=== PATIENT | female | born 1985 | race Caucasian/White ===

== ENCOUNTER 2020-11-17 10:39 | Emergency (ER) | payer BC ==
[~2020-11-17] VITALS: Ht 167.6 cm; Wt 56.7 kg
[2020-11-17 10:44] VITALS: BP 134/85
--- NOTE | 2020-11-17 11:00 | Emergency Room Report ---
History of Present Illness General Chief Complaint: Lower Extremity Injury Source: Patient Present Illness HPI Disclaimer: Please note that this report is being documented using [employer] technology. This can lead to erroneous entry secondary to incorrect interpretation by the dictating instrument. HPI: 35-year-old female presents for evaluation after a puncture wound to the right foot. Yesterday she was splitting up some wood and accidentally stepped on a nail that was lodged in a piece of wood. Went through her sneakers and penetrated the bottom of the foot. Did not go through to the other side. She applied hydrogen peroxide and Betadine. Denies limitation in range of motion. Denies swelling, bleeding, purulent drainage or surrounding redness. Came in for tetanus booster. No other injury reported. Painful to ambulate though still able to. PMH: Asthma PSH: Breast augmentation Allergies: Denied Social Hx: Current smoker, quitting Allergies: Coded Allergies: No Known Allergies (Unverified , 11/17/20) COVID-19 Screening Contact w/high risk pt: No Experienced COVID-19 symptoms?: No COVID-19 Testing performed CLAIMS ADJUSTOR: Yes COVID-19 Screening: Negative COVID-19 COVID-19 Testing Source: car Patient History Now: No Nursing Documentation-PMH Past Medical History: No History, Except For Hx Gastrointestinal Problems: Yes - GERD Review of Systems All Other Systems: negative except mentioned in HPI Physical Exam Vital Signs Date Time Temp Pulse Resp B/P (MAP) Pulse Ox O2 Delivery O2 Flow Rate FiO2 11/17/20 10:44 98.4 87 18 134/85 (101) 100 Room Air General: Awake and alert, no acute distress HEENT: NC/AT. EOMI. Resp: Normal work of breathing Skin: Intact. Small closed puncture wound over the plantar surface of the foot around the fourth metatarsal. No through and through injury. No bleeding, no surrounding edema or erythema. MSK: Normal tone and bulk. Moving all extremities. No obvious deformity. Full range of motion at the ankle and all toes. Neuro: Awake and alert. Mentating appropriately Medical Decision Making Diagnostic Impression: Primary Impression: Puncture wound of foot, right Qualified Codes: S91.331A - Puncture wound without foreign body, right foot, initial encounter ER Course 35-year-old female presents after a puncture wound to the right foot through her shoes yesterday. Will update tetanus. No foreign body seen on x-ray. Will start on Cipro for prophylax against Pseudomonas as the nail penetrated through a rubber sole. Instructed to return new or worsening symptoms. Other X-Ray Diagnostic Results Other X-Ray Diagnostic Results : X-Ray ordered: Right foot # of Views/Limited Vs Complete: Complete Indication: Pain EP Interpretation: Yes Interpretation: no dislocation, no soft tissue swelling, no fractures, other - No foreign body Impression: No acute disease Electronically Signed by: Electronically signed by Dr. Kin Allen MD Last Vital Signs Date Time Temp Pulse Resp B/P (MAP) Pulse Ox O2 Delivery O2 Flow Rate FiO2 11/17/20 10:44 98.4 87 18 134/85 (101) 100 Room Air Disposition: HOME, SELF-CARE Condition: Stable Scripts Ciprofloxacin* (CIPRO*) 500 Mg Tablet 500 MG PO BID for 7 Days, #14 TAB Prov: Kin Allen MD 11/17/20 Kin Allen MD Nov 17, 2020 11:00
[2020-11-17] MEDS ORDERED: CIPRO500 MG PO (11:03)
[2020-11-17] MEDS ORDERED: Tetanus/Diptheria/Pertussis IM ONE ×2 (11:06→11:15)
--- NOTE | 2020-11-17 12:09 | NUR ---
ER DISCHARGE NOTE: Patient is cleared to be discharged per ERMD, pt is aox4, on room air, with stable vital signs. pt was given dc and prescription instructions, pt was able to verbalize understanding. pt is able to ambulate with steady gait. pt took all belongings.
--- NOTE | 2020-11-17 14:04 | Diagnostic Imaging Report ---
FILM RIGHT FOOT RIGHT FOOT, 3 views INDICATION: Injury COMPARISON: None FINDINGS: 3 views of the right foot are obtained. Bony structures are intact. Bone mineralization is within normal limits. Joint spaces are preserved. Soft tissues within normal limits. No radio-opaque foreign bodies. IMPRESSION: No acute fracture or subluxation identified.
== END 2020-11-17 12:09 | disposition home or self-care (01) ==
LOC: EMR 11:15
DX: S91.331A Puncture wound without foreign body, right foot, initial encounter (principal); W45.8XXA Other foreign body or object entering through skin, initial encounter; Y92.9 Unspecified place or not applicable; F17.200 Nicotine dependence, unspecified, uncomplicated; K21.9 Gastro-esophageal reflux disease without esophagitis; Z23 Encounter for immunization
CPT/HCPCS: 90471; 90715; 99283